=== PATIENT | male | born 1955 | race Caucasian/White ===

== ENCOUNTER 2020-05-22 15:33 | Emergency (ER) | payer MEDICARE, MEDICAID | END 2020-05-22 16:15 | disposition home or self-care (01) | LOC: ERS 15:33 | DX: F41.9 Anxiety disorder, unspecified (principal) | CPT/HCPCS: 99283 ==

== ENCOUNTER 2020-05-25 08:21 | Emergency (ER) | payer MEDICARE, MEDICAID ==
[2020-05-25 09:46] LABS: #Eosinphils 0.3 thou/uL (0.0-0.7); #Lymphocytes 1.3 thou/uL (1.20-3.40); #Monocytes 0.5 thou/uL (0.11-0.59); #Neutrophils 4.3 thou/uL (1.40-6.50); %Basophils 0.5 % (0.0-1.0); %Eosinophils 5.3 % (0.0-10.0); %Lymphocytes 19.8 % (21.0-51.0); %Monocytes 8.2 % (0.0-10.0); %Neutrophils 66.3 % (42.0-75.0); Mean Corpuscular HGB CONC 33.6 g/dL (32.0-36.0); Mean Corpuscular Volume 95.1 fL (78.0-98.0); Mean Platelet Volume 7.3 fL (7.4-10.4); Platelet Count 320 thou/uL (130-400); RBC Distribution Width 12.4 % (11.5-14.5); Red Blood Cell (RBC) Count 4.39 mill/uL (4.70-6.10); White Blood Cell (WBC) Count 6.5 thou/uL (4.8-10.8)
[2020-05-25 09:58] LABS: ALT (SGPT) 19 U/L (8-55); AST (SGOT) 19 U/L (5-34); Albumin 3.8 g/dL (3.4-4.8); Alkaline Phosphatase 72 U/L (40-110); Anion Gap 11 mmol/L (10-20); BUN (Urea Nitrogen) 15 mg/dL (8.4-25.7); Bilirubin, Total 0.8 mg/dL (0.2-1.2); CK (CPK) 239 U/L (30-200); Calc. Creatinine Clearance 0 mL/min (70-130); Calcium 8.4 mg/dL (7.8-10.44); Carbon Dioxide 23 mmol/L (23-31); Chloride 110 mmol/L (98-107); Estimated GFR-MDRD 80; Globulin 2.2 g/dL (2.4-3.5); Glucose 98 mg/dL (80-115); Potassium 4.4 mmol/L (3.5-5.1); Sodium 140 mmol/L (136-145)
--- NOTE | 2020-05-29 13:09 | EKG ---
Test Reason : CP Blood Pressure : / mmHG Vent. Rate : 053 BPM Atrial Rate : 053 BPM P-R Int : 240 ms QRS Dur : 074 ms QT Int : 452 ms P-R-T Axes : 031 -33 009 degrees QTc Int : 424 ms Sinus bradycardia with 1st degree A-V block Left axis deviation Low voltage QRS Abnormal ECG Confirmed by SOULEYMANE HARGROVE M.D. ([id number]), video tape editor REEMA ALLEN ([id number]) on 05/29/2020 1:08:43 PM Referred By: Confirmed By:SOULEYMANE HARGROVE M.D.
== END 2020-05-25 11:25 | disposition home or self-care (01) ==
LOC: ERS 08:21
DX: R53.83 Other fatigue (principal); R11.2 Nausea with vomiting, unspecified
CPT/HCPCS: 36415; 80053; 82550; 84484; 85025; 93005; 96360

== ENCOUNTER 2021-05-06 07:45 | Emergency (ER) | payer MEDICARE, MEDICAID | END 2021-05-06 10:30 | disposition home or self-care (01) | LOC: ERS 07:45 | DX: L03.116 Cellulitis of left lower limb (principal); L03.115 Cellulitis of right lower limb | CPT/HCPCS: 99283 ==

== ENCOUNTER 2021-05-06 12:01 | Emergency (ER) | payer MEDICARE, MEDICAID | END 2021-05-06 13:40 | disposition home or self-care (01) | LOC: ERS 12:01 | DX: R53.83 Other fatigue (principal); Z59.0 Homelessness | CPT/HCPCS: 99283 ==

== ENCOUNTER 2021-05-06 22:09 | Emergency (ER) | payer MEDICARE, MEDICAID | END 2021-05-06 22:37 | disposition home or self-care (01) | LOC: ERS 22:09 | DX: Z48.00 Encounter for change or removal of nonsurgical wound dressing (principal) | CPT/HCPCS: 99281; 99283 ==